=== PATIENT | male | born 1975 | race Caucasian/White ===

== ENCOUNTER 2021-02-21 18:25 | Emergency (ER) | payer SELFPAY ==
[~2021-02-21] VITALS: Ht 177.8 cm; Wt 69.2 kg
[2021-02-21 19:17] LABS: BASO # 0.02 K/mm3 (0.02-0.10); EOS # 0.03 K/mm3 (0.04-0.40); EOS % 0.7 % (0.0-4.0); HEMATOCRIT 48.1 % (42.0-52.0); HEMOGLOBIN 16.9 g/dL (13.5-18.0); LYMPH# 2.08 K/mm3 (1.50-4.00); MEAN CELL VOLUME 103 fl (78-100); MEAN CORPUSCULAR HEMOGLOBIN 36 pg (27-31); MEAN CORPUSCULAR HGB CONC 35 g/dL (33-37); MEAN PLATELET VOLUME 9.2 fl (7.4-10.4); MONO # 0.58 K/mm3 (0.20-0.80); NEU # 1.53 K/mm3 (1.40-6.50); PLATELET COUNT 232 K/mm3 (130-400); RED BLOOD COUNT 4.68 M/mm3 (4.20-5.60); RED CELL DISTRIBUTION WIDTH 13.3 % (11.5-14.5); WHITE BLOOD COUNT 4.3 K/mm3 (4.8-10.8)
[2021-02-21 19:28] LABS: ALBUMIN 4.5 g/dL (3.5-5.0)
[2021-02-21 19:29] LABS: SODIUM 146 mmol/L (136-145)
[2021-02-21 19:30] LABS: CALCIUM 9.7 mg/dL (8.3-10.5)
[2021-02-21 19:31] LABS: GLUCOSE 95 mg/dL (75-110); TOTAL PROTEIN 7.8 g/dL (6.4-8.3)
[2021-02-21 19:32] LABS: CARBON DIOXIDE 25 mmol/L (22-29)
[2021-02-21 19:33] LABS: TOTAL BILIRUBIN 0.6 mg/dL (0.2-1.2)
[2021-02-21 19:36] LABS: AST-SGOT 270 U/L (5-34)
[2021-02-21 19:38] LABS: ALT/SGPT 152 U/L (0-55)
[2021-02-21 19:42] LABS: ALCOHOL IN-HOUSE 408 mg/dL (<10)
[2021-02-21 19:46] LABS: TROPONIN-I < 0.030 ng/mL (<0.030)
[2021-02-21 20:30] VITALS: BP 143/103
== END 2021-02-21 20:30 | disposition home or self-care (01) ==
LOC: ED 18:25
PROVIDERS: Physician Assistant
DX: F10.129 Alcohol abuse with intoxication, unspecified (principal); Y90.8 Blood alcohol level of 240 mg/100 ml or more; Z20.822 Contact with and (suspected) exposure to COVID-19
CPT/HCPCS: J0780; J7120

== ENCOUNTER → 2021-04-06 | Outpatient (CLI) | payer OTHER ==
[2021-04-06 16:20] LABS: PARTIAL THROMBOPLASTIN TIME 22.3 SECONDS (21.0-32.0); PROTHROMBIN TIME 9.8 SECONDS (9.0-12.0)
[2021-04-12 12:53] LABS: VITAMIN B1 123 nmol/L (70-180)
== END ==
LOC: LAB 15:09
PROVIDERS: Internal Medicine
DX: K21.9 Gastro-esophageal reflux disease without esophagitis (principal); G62.9 Polyneuropathy, unspecified; R16.0 Hepatomegaly, not elsewhere classified

== ENCOUNTER → 2021-05-03 | Outpatient (CLI) | payer OTHER | LOC: RAD 10:29 | DX: R16.0 Hepatomegaly, not elsewhere classified (principal) ==